=== PATIENT | female | born 1935 | race Caucasian/White ===

== ENCOUNTER 2020-12-10 21:03 | Inpatient (IN) | payer MEDICARE, OTHER ==
[~2020-12-10] VITALS: Ht 162.6 cm; Wt 64.0 kg
[2020-12-11 03:56] LABS: HEMOGLOBIN 13.4 gm/dl (12.3-15.3); RED BLOOD COUNT 4.27 M/UL (4.00-5.10); WHITE BLOOD COUNT 7.3 K/UL (4.5-11.0)
[2020-12-11 04:18] LABS: BUN/CREATININE RATIO 20 (0-10)
[2020-12-11] MEDS ORDERED: ACETAMINOPHEN-1 EAC1 PO (13:20)
[2020-12-11] MEDS ORDERED: NAMENDA10 MG PO (13:21)
[2020-12-11] MEDS ORDERED: LINZESS290 MCG PO (13:21)
[2020-12-11] MEDS ORDERED: LOPRESSOR 25 MG25 MG PO (13:22)
[2020-12-11] MEDS ORDERED: PROTONIX 40 MG40 M1 PO (13:22)
[2020-12-11] MEDS ORDERED: GLUCOPHAGE XR500 M1 PO (13:23)
[2020-12-11] MEDS ORDERED: CRESTOR20 MG PO (13:24)
[2020-12-12 03:32] LABS: HEMOGLOBIN 12.4 gm/dl (12.3-15.3); RED BLOOD COUNT 4.07 M/UL (4.00-5.10); WHITE BLOOD COUNT 5.3 K/UL (4.5-11.0)
[2020-12-12 03:54] LABS: BUN/CREATININE RATIO 14 (0-10)
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
[2020-12-13 07:57] LABS: HEMOGLOBIN 12.8 gm/dl (12.3-15.3); RED BLOOD COUNT 4.14 M/UL (4.00-5.10)
[2020-12-13 07:58] LABS: WHITE BLOOD COUNT 8.8 K/UL (4.5-11.0)
[2020-12-13 08:22] LABS: BUN/CREATININE RATIO 6 (0-10)
[2020-12-14 03:12] LABS: HEMOGLOBIN 12.9 gm/dl (12.3-15.3); RED BLOOD COUNT 4.13 M/UL (4.00-5.10); WHITE BLOOD COUNT 8.4 K/UL (4.5-11.0)
[2020-12-14 03:32] LABS: BUN/CREATININE RATIO 6 (0-10)
--- NOTE | 2020-12-14 07:02 | NUR ---
2305 PT KT 3.4 AT 2100. PT REFUSED POTASSIUM PILL AND REFUSED TO HAVE IV RESTARTED.
[2020-12-16 06:37] LABS: WHITE BLOOD COUNT 7.6 K/UL (4.5-11.0)
[2020-12-16 06:38] LABS: RED BLOOD COUNT 4.56 M/UL (4.00-5.10)
[2020-12-16 06:43] LABS: BUN/CREATININE RATIO 31 (0-10)
--- NOTE | 2020-12-16 19:45 | NUR ---
ORDER NOTED TO LEAVE IV OUT
[2020-12-17 01:18] LABS: HEMOGLOBIN 12.5 gm/dl (12.3-15.3); WHITE BLOOD COUNT 6.8 K/UL (4.5-11.0)
[2020-12-17 01:19] LABS: RED BLOOD COUNT 4.05 M/UL (4.00-5.10)
[2020-12-17 01:39] LABS: BUN/CREATININE RATIO 31 (0-10)
[2020-12-18 09:24] LABS: HEMOGLOBIN 13.6 gm/dl (12.3-15.3); RED BLOOD COUNT 4.37 M/UL (4.00-5.10); WHITE BLOOD COUNT 6.8 K/UL (4.5-11.0)
[2020-12-18 10:00] LABS: BUN/CREATININE RATIO 27 (0-10)
[2020-12-19 05:12] LABS: HEMOGLOBIN 12.9 gm/dl (12.3-15.3); RED BLOOD COUNT 4.29 M/UL (4.00-5.10); WHITE BLOOD COUNT 7.2 K/UL (4.5-11.0)
[2020-12-19 07:33] LABS: BUN/CREATININE RATIO 26 (0-10)
[2020-12-20 05:52] LABS: HEMOGLOBIN 13.4 gm/dl (12.3-15.3); RED BLOOD COUNT 4.31 M/UL (4.00-5.10); WHITE BLOOD COUNT 7.1 K/UL (4.5-11.0)
[2020-12-20 06:08] LABS: BUN/CREATININE RATIO 25 (0-10)
[2020-12-21 02:56] LABS: HEMOGLOBIN 13.7 gm/dl (12.3-15.3); RED BLOOD COUNT 4.4 M/UL (4.00-5.10); WHITE BLOOD COUNT 7.5 K/UL (4.5-11.0)
[2020-12-21 03:21] LABS: BUN/CREATININE RATIO 33 (0-10)
[2020-12-23 08:28] LABS: BUN/CREATININE RATIO 36 (0-10)
[2020-12-23] MEDS ORDERED: ASPIRIN EC81 MG PO (11:07)
[2020-12-23] MEDS ORDERED: LOPRESSOR 25 MG25 MG PO (11:07)
[2020-12-23] MEDS ORDERED: DONEPEZIL HCL5 MG PO (11:07)
[2020-12-23] MEDS ORDERED: ACETAMINOPHEN-1 EAC1 PO (11:07)
[2020-12-23] MEDS ORDERED: MEGACE TAB 40 M40 MG PO (11:07)
[2020-12-23] MEDS ORDERED: DRONABINOL2.5 MG PO (11:07)
== END 2020-12-23 15:33 | DRG 56 ==
LOC: ER1 21:03 → CDU 12-11 06:25 → M/S 12-11 06:57
PROVIDERS: Family Medicine; Internal Medicine; ADMIT Internal Medicine
DX: G30.9 Alzheimer's disease, unspecified (principal); G93.41 Metabolic encephalopathy; F02.80 Dementia in other diseases classified elsewhere, unspecified severity, without behavioral disturbance, psychotic disturbance, mood disturbance, and anxiety; R13.12 Dysphagia, oropharyngeal phase; Z20.822 Contact with and (suspected) exposure to COVID-19; E83.42 Hypomagnesemia; K21.9 Gastro-esophageal reflux disease without esophagitis; E87.6 Hypokalemia; E11.65 Type 2 diabetes mellitus with hyperglycemia; M48.02 Spinal stenosis, cervical region; I10 Essential (primary) hypertension; Z91.81 History of falling; Z85.038 Personal history of other malignant neoplasm of large intestine; Z79.899 Other long term (current) drug therapy; Z90.49 Acquired absence of other specified parts of digestive tract; Z88.0 Allergy status to penicillin; Z88.8 Allergy status to other drugs, medicaments and biological substances; Z80.9 Family history of malignant neoplasm, unspecified
CPT/HCPCS: 36415; 70551; 71045; 72141; 80048; 80053; 81001; 82140; 82550; 82553; 82607; 82962; 83605; 83735; 83874; 84132; 84439; 84443; 84484; 85025; 85027; 85610; 92526; 92610; 93005; 96365; 97110; 97110-GP-CQ; 97163; 97167; 97530; 97530-GP-CQ; 97535; 99285; J1650; J3475; J3480; J7030; U0002